=== PATIENT | male | born 1990 | race Caucasian/White ===

== ENCOUNTER 2019-02-18 21:48 | Emergency (ER) | payer BC, OTHER ==
[~2019-02-18] VITALS: Ht 167.6 cm; Wt 94.2 kg
[2019-02-18 21:58] VITALS: Ht 167.6 cm; Wt 94.2 kg
[2019-02-18] MEDS ORDERED: ONDANSETRON (ODT) 4 MG TAB ODT STA (23:35)
[2019-02-19] MEDS ORDERED: BELLADONNA/PHENOBARBITAL TAB PO ONE
[2019-02-19] MEDS ORDERED: LIDOCAINE/MYLANTA 40 ML BTL PO ONE
[2019-02-19] MEDS ORDERED: FAMO40TA5 PO (00:56)
[2019-02-19] MEDS ORDERED: ONDA4TAB14 PO (00:56)
[2019-02-19 01:18] VITALS: BP 137/78; PULSE 95; RESP 18
--- NOTE | 2019-02-19 03:11 | ERD ---
ER Documentation Chief Complaint Chief Complaint mid abdominal pain x 1 hour HPI History of Present Illness: 29-year-old male who denies past medical history coming today with complaint of epigastric pain is been present for 1 hour prior to arrival. Patient denies this type of pain before. He describes the pain as burning, 5/10, constant after eating at 5 PM. Reports pain started at approximately 7 PM. Associated symptoms includes nausea. At home pharmacological/nonpharmacological treatment for symptoms: Denies Denies social concerns; Denies recent foreign travel ROS All systems reviewed and are negative except as per history of present illness. Medications Home Meds Active Scripts Ondansetron (Ondansetron Odt) 4 Mg Tab.rapdis, 4 MG PO Q6H PRN for NAUSEA AND/OR VOMITING, #10 TAB Prov:HEATHER YEE V JOB HAND 02/19/19 Famotidine* (Famotidine*) 40 Mg Tablet, 40 MG PO BID for ACID REFLUX/GASTRITIS, #60 TAB Prov:HEATHER YEE V JOB HAND 02/19/19 Allergies Allergies: Coded Allergies: No Known Allergy (Unverified , 02/18/19) PMhx/Soc Medical and Surgical Hx: pt denies Medical Hx, pt denies Surgical Hx Hx Alcohol Use: No Hx Substance Use: No Hx Tobacco Use: No Smoking Status: Never smoker FmHx Family History: No diabetes, No coronary disease Physical Exam Vitals Vital Signs Date Temp Pulse Resp B/P (MAP) Pulse Ox O2 O2 Flow FiO2 Time Delivery Rate 02/19/19 99.1 95 18 137/78 99 Room Air 01:18 (97) 02/18/19 98.3 93 18 141/65 98 21:58 (90) Physical Exam Const: No acute distress Head: Atraumatic Eyes: Normal Conjunctiva ENT: Normal External Ears, Nose and Mouth. Neck: Full range of motion. No meningismus. Resp: Clear to auscultation bilaterally Cardio: Regular rate and rhythm, no murmurs Abd: Soft, tenderness to epigastric, non distended. Normal bowel sounds Skin: No petechiae or rashes Back: No midline or flank tenderness Ext: No cyanosis, or edema Neur: Awake and alert Psych: Normal Mood and Affect Results 24 hrs Current Medications Medications Dose Sig/Elana Start Time Status Last (Trade) Ordered Route PRN Stop Time Admin Dose Reason Admin Ondansetron 4 mg ONCE STAT 02/18/19 DC 02/18/19 HCl (Zofran ODT 23:35 02/18/19 23:46 Odt) 23:37 40 ml ONCE ONCE 02/19/19 DC 02/18/19 Miscellaneous PO 00:00 02/19/19 23:46 Medication 00:01 (Gi Cocktail (2)) Belladonna/ 1 tab ONCE ONCE 02/19/19 DC 02/18/19 Phenobarbital PO 00:00 02/19/19 23:46 () 00:01 Procedures/MDM ED course includes a thorough examination and history. Medications: GI cocktail, , Zofran Imaging: Labs: Low suspicion for life-threatening medical emergency. Low suspicion for infectious process that requires antibiotics at this time; patient hemodynamically stable and afebrile without use of antipyretics. Suspicion for acute abdominal emergency requires hospitalization or immediate surgical intervention. Otherwise healthy patient presenting with constellation of symptoms likely representing GERD as characterized by history, physical exam findings. Patient reassessment: Patient hemodynamically stable. Patient denies pain at this time after GI cocktail. Nausea no longer present. No respiratory distress, otherwise relatively well appearing and nontoxic. Disposition given. Patient educated on diagnoses, prescriptions, follow-up care, return precautions. Strict return precautions given for worsening condition; questions answered discharge. Disposition for discharge with followup in 2 days with PCP/clinic. Departure Diagnosis: Primary Impression: GERD (gastroesophageal reflux disease) Esophagitis presence: esophagitis presence not specified Qualified Codes: K21.9 - Gastro-esophageal reflux disease without esophagitis Additional Impression: Epigastric pain Condition: Stable Patient Instructions: Gerd (Adult) Referrals: [facility] YOU HAVE RECEIVED A MEDICAL SCREENING EXAM AND THE RESULTS INDICATE THAT YOU DO NOT HAVE A CONDITION THAT REQUIRES URGENT TREATMENT IN THE EMERGENCY DEPARTMENT. FURTHER EVALUATION AND TREATMENT OF YOUR CONDITION CAN WAIT UNTIL YOU ARE SEEN IN YOUR DOCTORS OFFICE WITHIN THE NEXT 1-2 DAYS. IT IS YOUR RESPONSIBILITY TO MAKE AN APPOINTMENT FOR FOLOW-UP CARE. IF YOU HAVE A PRIMARY DOCTOR --you should call your primary doctor and schedule an appointment IF YOU DO NOT HAVE A PRIMARY DOCTOR YOU CAN CALL OUR PHYSICIAN REFERRAL HOTLINE AT IF YOU CAN NOT AFFORD TO SEE A PHYSICIAN YOU CAN CHOSE FROM THE FOLLOWING [facility] [address] [facility] [address] [facility] [address] [facility] [address] [facility] [address] [facility]. [facility] [address] [facility]. [facility] YOU HAVE RECEIVED A MEDICAL SCREENING EXAM AND THE RESULTS INDICATE THAT YOU DO NOT HAVE A CONDITION THAT REQUIRES URGENT TREATMENT IN THE EMERGENCY DEPARTMENT. FURTHER EVALUATION AND TREATMENT OF YOUR CONDITION CAN WAIT UNTIL YOU ARE SEEN IN YOUR DOCTORS OFFICE WITHIN THE NEXT 1-2 DAYS. IT IS YOUR RESPONSIBILITY TO MAKE AN APPOINTMENT FOR FOLOW-UP CARE. IF YOU HAVE A PRIMARY DOCTOR --you should call your primary doctor and schedule and appointment IF YOU DO NOT HAVE A PRIMARY DOCTOR YOU CAN CALL OUR PHYSICIAN REFERRAL HOTLINE AT . IF YOU CAN NOT AFFORD TO SEE A PHYSICIAN YOU CAN CHOSE FROM THE FOLLOWING [facility] INSTITUTIONS: [facility] [address] [place] [address] [facility] [address] [place] [address] [facility] [address] [place] [address] Additional Instructions: Thank you very much for allowing us to participate in your care. Your health and safety is our top priority at [facility]. It is important to read all discharge instructions and education provided in your discharge packet. Call your primary care doctor TOMORROW for an appointment during the next 2-4 days and bring all the information and medications prescribed. Have prescriptions filled and follow precisely the directions on the label. --Famotidine is a medication that will help with acid reflux; take this medication as prescribed for the next 1 to 2 weeks with lunch and dinner. Report to your primary care doctor if the nausea is no longer present with this medication. If so, it is highly likely that your acid reflux is causing your nausea. -Zofran is a medication for nausea/vomitting; take this medication as needed for nausea/vomiting/decreased appetite. If the symptoms get worse and your provider is unavailable, return to the Emergency Department immediately. HEATHER YEE NP February 19, 2019 03:11
== END 2019-02-19 01:19 | disposition home or self-care (01) ==
LOC: FTE 21:48
DX: K21.9 Gastro-esophageal reflux disease without esophagitis (principal)
CPT/HCPCS: 99283; Z7610